=== PATIENT | female | born 1990 | race Caucasian/White ===

== ENCOUNTER 2016-03-25 18:53 | Emergency (ER) | payer OTHER, BC ==
[2016-03-26] MEDS ORDERED: OXYCODONE-ACETAMINOPHEN 5-325 MG TABLET PO ONE (00:28)
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
[2016-03-26] MEDS ORDERED: HYDROCODONE/ACETAMINOPHEN 5-325 MG 6 TAB/DSPK PO PRN (01:26)
[2016-03-26 02:18] VITALS: BP 145/75
== END 2016-03-26 02:16 | disposition home or self-care (01) ==
LOC: ER 18:53
PROC: 2W5 Placement, Anatomical Regions, Removal (ICD-10-PCS; principal; 2016-03-25)
DX: S62.101A Fracture of unspecified carpal bone, right wrist, initial encounter for closed fracture (principal); M25.531 Pain in right wrist; V89.2XXA Person injured in unspecified motor-vehicle accident, traffic, initial encounter
CPT/HCPCS: 99283

== ENCOUNTER → 2016-03-29 | Outpatient (CLI) | payer BC | LOC: RAD 13:36 | PROVIDERS: ATTEND Orthopaedic Surgery | DX: S52.501A Unspecified fracture of the lower end of right radius, initial encounter for closed fracture (principal); X58.XXXA Exposure to other specified factors, initial encounter ==

== ENCOUNTER 2016-09-08 16:15 | Emergency (ER) | payer BC ==
[2016-09-08] MEDS ORDERED: NORMAL SALINE 1000 ML 1,000 ML IV PRN (16:41)
--- NOTE | 2016-09-08 16:44 | ER Document Report ---
ED Medical Screen (RME) - General Chief Complaint: Dizziness Stated Complaint: CONGESTION Time Seen by Provider: 09/08/16 16:41 Mode of Arrival: Ambulatory Information source: Patient TRAVEL OUTSIDE OF THE [place] IN LAST 30 DAYS: No - HPI Patient complains to provider of: Generalized weakness, dizziness, syncopal episodes Notes: 09/08/16 16:42 Patient is a 26-year-old female who presents to the emergency room complaining of 2 week history of headache, nausea, syncopal episodes, she states that just before she has a syncopal episode she gets tunnel vision and feels like weakness , sometimes she can sit down and she does not pass out, outside salesperson who accompanies her has seen 1 of these episodes and denies seeing any seizure-like activity, she does report having some mild chest pain or shortness of breath prior to an episode, she is also complaining of lower abdominal pains today, no appetite and nausea, she has had no vomiting, she does report subjective fevers , she denies being , patient is currently on methadone 2 months, for previous opiate pain pills addiction - Related Data Allergies/Adverse Reactions: clindamycin [Clindamycin] Allergy (Verified 09/08/16 16:36) Past Medical History - Past Medical History Cardiac Medical History: Denies: Hx Coronary Artery Disease, Hx Heart Attack, Hx Hypertension Pulmonary Medical History: Denies: Hx Asthma, Hx Bronchitis, Hx COPD, Hx Pneumonia Neurological Medical History: Denies: Hx Cerebrovascular Accident, Hx Seizures Renal/ Medical History: Denies: Hx Peritoneal Dialysis Musculoskeltal Medical History: Denies Hx Arthritis Past Surgical History: Reports: Hx Tonsillectomy - Immunizations Immunizations up to date: No Hx Diphtheria, Pertussis, Tetanus Vaccination: Yes Physical Exam - Vital signs Vitals: Temp Pulse Resp BP Pulse Ox 98.2 F 57 L 16 106/62 99 09/08/16 16:19 09/08/16 16:19 09/08/16 16:19 09/08/16 16:19 09/08/16 16:19 Course - Vital Signs Vital signs: Temp Pulse Resp BP Pulse Ox 98.2 F 57 L 16 106/62 99 09/08/16 16:19 09/08/16 16:19 09/08/16 16:19 09/08/16 16:19 09/08/16 16:19
[2016-09-08] MEDS ORDERED: ONDANSETRON HCL INJ/PF 4 MG/2 ML SDV IV ONE (17:12)
[2016-09-08 17:52] LABS: APPEARANCE,URINE SLIGHTLY-CLOUDY; BILIRUBIN,URINE NEGATIVE (NEGATIVE); CALCIUM OXALATE CRYSTALS,URINE TOO NUMEROUS TO CNT /HPF; GLUCOSE, URINE NEGATIVE (NEGATIVE); KETONES,URINE NEGATIVE (NEGATIVE); LEUKOCYTE ESTERASE,URINE TRACE (NEGATIVE); NITRITE,URINE NEGATIVE (NEGATIVE); PROTEIN,URINE 30 mg/dL (NEGATIVE); URINE SPECIFIC GRAVITY 1.019
[2016-09-08 17:54] LABS: ABSOLUTE EOSINOPHILS # (AUTO) 0.1 10^3/uL (0.0-0.6); ABSOLUTE LYMPHOCYTES (AUTO) 2.1 10^3/uL (0.5-4.7); ABSOLUTE MONOCYTES (AUTO) 0.8 10^3/uL (0.1-1.4); ABSOLUTE NEUT (AUTO) 2.8 10^3/uL (1.7-8.2); BASOPHILS % (AUTO) 0.5 % (0-2); HEMATOCRIT 42.2 % (36.0-47.0); HEMOGLOBIN 13.9 g/dL (12.0-15.5); HGB HCT DIFFERENCE -0.5; LYMPHOCYTES % (AUTO) 35.5 % (13-45); MEAN CORPUSCULAR HEMOGLOBIN 25.9 pg (27.0-33.4); MEAN CORPUSCULAR HGB CONC 32.8 g/dL (32.0-36.0); MEAN CORPUSCULAR VOLUME 79 fl (80-97); RED BLOOD COUNT 5.35 10^6/uL (3.72-5.28); RED CELL DISTRIBUTION WIDTH 13.9 % (11.5-14.0); WHITE BLOOD COUNT 5.9 10^3/uL (4.0-10.5)
[2016-09-08 18:08] LABS: URINE BARBITURATES SCREEN NEGATIVE; URINE METHADONE SCREEN UNCONFIRMED POSITIVE; URINE OPIATES LOW UNCONFIRMED POSITIVE; URINE PHENCYCLIDINE SCREEN NEGATIVE
--- NOTE | 2016-09-08 18:55 | ER Document Report ---
ED General - General Chief Complaint: Dizziness Stated Complaint: CONGESTION Time Seen by Provider: 09/08/16 16:41 Mode of Arrival: Ambulatory Notes: Patient is a 26-year-old female with a past history of ongoing opiate abuse who presents with 2 weeks of intermittent episodes of near syncope. Patient is a very vague historian and has a multitude of complaints including sinus congestion, headache, nausea, cough, intermittent lightheadedness. She has not seen her primary care doctor regarding any of these concerns. She notes that her friend who is at the bedside seems to have all the exact same symptoms are on the same time. Admits that they are both using drugs. Patient does not think that her symptoms could be related to her drug use. Denies any history of similar symptoms in the past. TRAVEL OUTSIDE OF THE [place] IN LAST 30 DAYS: No - Related Data Allergies/Adverse Reactions: clindamycin [Clindamycin] Allergy (Verified 09/08/16 16:36) Past Medical History - General Information source: Patient - Social History Smoking Status: Current Every Day Smoker Chew tobacco use (# tins/day): No Frequency of alcohol use: Occasional Drug Abuse: Prescription drugs Lives with: Friend Family History: Reviewed & Not Pertinent - Past Medical History Cardiac Medical History: Denies: Hx Coronary Artery Disease, Hx Heart Attack, Hx Hypertension Pulmonary Medical History: Denies: Hx Asthma, Hx Bronchitis, Hx COPD, Hx Pneumonia Neurological Medical History: Denies: Hx Cerebrovascular Accident, Hx Seizures Renal/ Medical History: Denies: Hx Peritoneal Dialysis Musculoskeltal Medical History: Denies Hx Arthritis Past Surgical History: Reports: Hx Tonsillectomy - Immunizations Immunizations up to date: No Hx Diphtheria, Pertussis, Tetanus Vaccination: Yes Review of Systems - Review of Systems Notes: Constitutional: Negative for fever. HENT: Negative for sore throat. Eyes: Negative for visual changes. Cardiovascular: Negative for chest pain. Respiratory: Negative for shortness of breath. Gastrointestinal: Negative for abdominal pain, vomiting or diarrhea. Genitourinary: Negative for dysuria. Musculoskeletal: Negative for back pain. Skin: Negative for rash. Neurological: Negative for headaches, weakness or numbness. 10 point ROS negative except as marked above and in HPI. Physical Exam - Vital signs Vitals: Temp Pulse Resp BP Pulse Ox 98.2 F 57 L 16 106/62 99 09/08/16 16:19 09/08/16 16:19 09/08/16 16:19 09/08/16 16:19 09/08/16 16:19 Interpretation: Bradycardic Notes: PHYSICAL EXAMINATION: GENERAL: Well-appearing, well-nourished and in no acute distress. HEAD: Atraumatic, normocephalic. EYES: Pupils equal round and reactive to light, extraocular movements intact, sclera anicteric, conjunctiva are normal. ENT: nares patent, oropharynx clear without exudates. Moist mucous membranes. NECK: Normal range of motion, supple without lymphadenopathy LUNGS: Breath sounds clear to auscultation bilaterally and equal. No wheezes rales or rhonchi. HEART: Regular rate and rhythm without murmurs ABDOMEN: Soft, nontender, normoactive bowel sounds. No guarding, no rebound. No masses appreciated. EXTREMITIES: Normal range of motion, no pitting or edema. No cyanosis. NEUROLOGICAL: No focal neurological deficits. Moves all extremities spontaneously and on command. PSYCH: Normal mood, normal affect. SKIN: Warm, Dry, normal turgor, no rashes or lesions noted. Course - Re-evaluation Re-evalutation: 09/08/16 18:53 Patient also complains of recurrent episodes of either near syncope or syncope which based on her admission and urine tox screen are likely related to her ongoing polysubstance abuse. Patient normotensive, alert, without focal neurologic deficits at time of arrival. Denies syncope was during exertion. No preceding symptoms of palpitations, chest pain, or shortness of breath. Patient asymptomatic at time of arrival. EKG is without evidence of HCOM, right heart strain, ST changes to suggest ischemia, prolong QTc, delta wave, epsilon wave, or Brugada syndrome. Patient denies any family history of sudden cardiac , personal history of of structural heart disease. Patient denies any symptoms to suggest an acute PE, OR, TAD, SAH, seizure, or acute GI bleed as the etiology of their syncope today. On exam, no murmurs to suggest critical aortic stenosis as possible etiology. Based on overall clinical history, exam findings, vitals , and patients appearance, I feel it is safe for patient to be discharged home at this time with close outpatient follow-up and strict return precautions. Patient is in agreement with this plan, has verbalized indications for return to ED, and questions have been answered. - Vital Signs Vital signs: Temp Pulse Resp BP Pulse Ox 98.6 F 69 18 130/75 H 100 09/08/16 20:46 09/08/16 20:46 09/08/16 20:46 09/08/16 20:46 09/08/16 20:46 - Laboratory Result Diagrams: 09/08/16 17:15 09/08/16 19:48 Laboratory results interpreted by me: 09/08/16 09/08/16 09/08/16 17:15 17:15 19:48 RBC 5.35 H MCV 79 L MCH 25.9 L Monocytes % 14.0 H Chloride 108 H AST 40 H Urine Protein 30 H Urine Urobilinogen 2.0 H Ur Leukocyte Esterase TRACE H - EKG Interpretation by Me Additional EKG results interpreted by me: 09/09/16 03:33 Normal sinus rhythm. Rate 85. No ST elevations or depressions. QTC is 433. Discharge - Discharge Clinical Impression: Near syncope, Lightheadedness, Opiate abuse, continuous Condition: Good Disposition: HOME, SELF-CARE Additional Instructions: You were seen today for concerns of passing out. Your EKG here is normal. At this time, we do not feel that your episodes of passing out are from any life- threatening cause. Please drink plenty of fluids over the next several days. Return to emergency department if you have any further episodes of syncope, headache, weakness, numbness, chest pain, or shortness of breath. Please follow up closely with your primary care physician. Please stop using narcotics. You will kill yourself one day on accident if you continue to use these extremely dangerous substances.
[2016-09-08 20:15] LABS: ALANINE AMINOTRANSFERASE 35 U/L (9-52); ALBUMIN 3.6 g/dL (3.5-5.0); ALKALINE PHOSPHATASE 67 U/L (38-126); ANION GAP 11 (5-19); ASPARTATE AMINO TRANSFERASE 40 U/L (14-36); BILIRUBIN,DIRECT 0.4 mg/dL (0.0-0.4); BILIRUBIN,TOTAL 0.7 mg/dL (0.2-1.3); BLOOD UREA NITROGEN 9 mg/dL (7-20); CALCIUM 8.5 mg/dL (8.4-10.2); CARBON DIOXIDE 22 mmol/L (22-30); CHLORIDE 108 mmol/L (98-107); CREATININE RESULT 0.77 mg/dL (0.52-1.25); GLUCOSE 94 mg/dL (75-110); POTASSIUM 4.4 mmol/L (3.6-5.0); SODIUM 140.8 mmol/L (137-145)
[2016-09-08 20:48] VITALS: BP 130/75
--- NOTE | 2016-09-09 10:22 | EKG REPORT ---
SEVERITY:- ABNORMAL ECG - SINUS RHYTHM NONSPECIFIC T ABNORMALITIES, INFERIOR LEADS : Confirmed by: Мария Lazaro MD 09-Sep-2016 10:21:30
== END 2016-09-08 20:53 | disposition home or self-care (01) ==
LOC: ER 16:15
DX: R55 Syncope and collapse (principal); F11.10 Opioid abuse, uncomplicated; R09.81 Nasal congestion; R51 Headache; R11.0 Nausea; R05 Cough; F17.200 Nicotine dependence, unspecified, uncomplicated; Z88.1 Allergy status to other antibiotic agents
CPT/HCPCS: 93005; 99284; 96361; 96374; 36415; 84703; 85025; 80053; 81001; 84484; 80307; 93010; J2405; J7030

== ENCOUNTER 2018-05-04 16:35 | Emergency (ER) | payer SELFPAY ==
[2018-05-04] MEDS ORDERED: NORMAL SALINE 1000 ML 1,000 ML IV ONE (18:41)
[2018-05-04] MEDS ORDERED: METOCLOPRAMIDE HCL INJ/PF 10 MG/2 ML SDV IV ONE (18:42)
[2018-05-04] MEDS ORDERED: DIPHENHYDRAMINE HCL 50 MG/ML VIAL IV ONE (18:45)
[2018-05-04] MEDS ORDERED: KETOROLAC TROMETHAMINE 60 MG/2 ML SDV IM ONE (19:01)
[2018-05-04 19:47] LABS: APPEARANCE,URINE CLEAR; BILIRUBIN,URINE NEGATIVE (NEGATIVE); COLOR,URINE STRAW; GLUCOSE, URINE NEGATIVE (NEGATIVE); KETONES,URINE TRACE mg/dL (NEGATIVE); LEUKOCYTE ESTERASE,URINE LARGE (NEGATIVE); NITRITE,URINE NEGATIVE (NEGATIVE); PROTEIN,URINE NEGATIVE (NEGATIVE); URINE SPECIFIC GRAVITY 1.003; UROBILINOGEN,URINE NEGATIVE mg/dL (<2.0)
[2018-05-04 21:34] VITALS: BP 97/36
--- NOTE | 2018-05-04 22:08 | ER Document Report ---
ED General - General Chief Complaint: Headache Stated Complaint: HEADACHE Time Seen by Provider: 05/04/18 18:34 TRAVEL OUTSIDE OF THE [place] IN LAST 30 DAYS: No - HPI Notes: Patient presents to the emergency department for evaluation of a headache. She has a history of migraine headaches. She states this is typical although it has been lasting slightly longer. Is behind her eyes. She has had no help with Excedrin. She has had some associated nausea and emesis. Mild photophobia. No neck stiffness. No recent head traumas. Visual changes. No fevers. Again this is all typical of her migraines with the exception of mildly longer duration - Related Data Allergies/Adverse Reactions: clindamycin [Clindamycin] Allergy (Verified 09/08/16 16:36) Past Medical History - General Information source: Patient - Social History Smoking Status: Never Smoker Chew tobacco use (# tins/day): No Frequency of alcohol use: None Drug Abuse: None Family History: Reviewed & Not Pertinent Patient has suicidal ideation: No Patient has homicidal ideation: No - Past Medical History Cardiac Medical History: Denies: Hx Coronary Artery Disease, Hx Heart Attack, Hx Hypertension Pulmonary Medical History: Denies: Hx Asthma, Hx Bronchitis, Hx COPD, Hx Pneumonia Neurological Medical History: Reports: Hx Migraine. Denies: Hx Cerebrovascular Accident, Hx Seizures Renal/ Medical History: Denies: Hx Peritoneal Dialysis Musculoskeletal Medical History: Denies Hx Arthritis Past Surgical History: Reports: Hx Oral Surgery - wisdom, Hx Tonsillectomy - Immunizations Immunizations up to date: No Hx Diphtheria, Pertussis, Tetanus Vaccination: Yes Review of Systems - Review of Systems Constitutional: No symptoms reported EENT: See HPI Cardiovascular: No symptoms reported Respiratory: No symptoms reported Gastrointestinal: See HPI Musculoskeletal: No symptoms reported Skin: No symptoms reported Physical Exam - Vital signs Vitals: Temp Pulse Resp BP Pulse Ox 99.3 F 113 H 16 112/62 99 05/04/18 16:54 05/04/18 16:54 05/04/18 16:54 05/04/18 16:54 05/04/18 16:54 Interpretation: Tachycardic - Otherwise unremarkable - Notes Notes: Vital signs reviewed, please refer to chart. Patient is normocephalic, atraumatic. Pupils equal round, reactive to light. Neck is supple without meningismus. Heart is regular rate and rhythm. Lungs are clear to auscultation bilaterally. Abdomen is soft, nontender, normoactive bowel sounds throughout. Extremities without cyanosis, clubbing, edema. Peripheral pulses are equal. Skin is warm and dry. Patient is awake, alert, oriented x3. Cranial nerves II through XII are grossly intact without focal neurological deficits. Strength +5/5 upper and lower extremities. Sensation is intact. Gait within normal limits. Course - Re-evaluation Re-evalutation: 05/04/18 22:06 Patient seen and evaluated for headache. This is typical of her normal migraines. She was medicated with significant improvement. We will send her home with close follow-up. She is to return to the ED with worsening or new concerning symptoms. - Vital Signs Vital signs: Temp Pulse Resp BP Pulse Ox 98.0 F 75 16 97/36 L 99 05/04/18 21:28 05/04/18 21:28 05/04/18 21:28 05/04/18 21:28 05/04/18 21:28 - Laboratory Laboratory results interpreted by me: 05/04/18 18:30 Urine Ketones TRACE H Urine Blood SMALL H Ur Leukocyte Esterase LARGE H Discharge - Discharge Clinical Impression: Migraine Disposition: HOME, SELF-CARE Instructions: Headache ([facility]), Toradol Injection ([facility]) Additional Instructions: Rest, stay well-hydrated. Tylenol or ibuprofen as needed for severe pain. Follow-up with primary care doctor in 1-2 weeks. Return to the emergency department with worsening or new concerning symptoms.
== END 2018-05-04 22:18 | disposition home or self-care (01) ==
LOC: ER 16:35
DX: G40.909 Epilepsy, unspecified, not intractable, without status epilepticus (principal); R11.2 Nausea with vomiting, unspecified
CPT/HCPCS: 99283; 96372; 81025; 81001; J1885

== ENCOUNTER 2018-10-09 16:18 | Emergency (ER) | payer SELFPAY ==
--- NOTE | 2018-10-09 16:26 | ER Document Report ---
HPI - HPI Time Seen by Provider: 10/09/18 16:23 Pain Level: 3 Notes: Patient is an otherwise healthy 28-year-old female presenting to the emergency department with bilateral wrist pain. Patient reports about 6 to 12 months ago she was diagnosed with carpal tunnel syndrome. She reports that every once in a while it "acts up". Patient reports pain over the last several days. She states the pain is consistent with carpal tunnel. She denies any new injury. Patient has not taken any medication for this. - REPRODUCTIVE Reproductive: DENIES: : Past Medical History - General Information source: Patient - Social History Smoking Status: Never Smoker Frequency of alcohol use: None Drug Abuse: None Family History: Reviewed & Not Pertinent - Past Medical History Cardiac Medical History: Denies: Hx Coronary Artery Disease, Hx Heart Attack, Hx Hypertension Pulmonary Medical History: Denies: Hx Asthma, Hx Bronchitis, Hx COPD, Hx Pneumonia Neurological Medical History: Reports: Hx Migraine. Denies: Hx Cerebrovascular Accident, Hx Seizures Renal/ Medical History: Denies: Hx Peritoneal Dialysis Musculoskeletal Medical History: Denies Hx Arthritis Past Surgical History: Reports: Hx Oral Surgery - wisdom, Hx Tonsillectomy - Immunizations Immunizations up to date: No Hx Diphtheria, Pertussis, Tetanus Vaccination: Yes Vertical Provider Document - CONSTITUTIONAL Notes: PHYSICAL EXAMINATION: GENERAL: Well-appearing, well-nourished and in no acute distress. HEAD: Atraumatic, normocephalic. EYES: Pupils equal round extraocular movements intact, conjunctiva are normal. ENT: Nares patent NECK: Normal range of motion LUNGS: No respiratory distress Musculoskeletal: Normal range of motion, no swelling, erythema or ecchymosis n oted, cap refill less than 3 seconds bilaterally, strong radial pulses bilaterally, no obvious trauma. NEUROLOGICAL: Normal speech, normal gait. PSYCH: Normal mood, normal affect. SKIN: Warm, Dry, normal turgor, no rashes or lesions noted. - INFECTION CONTROL TRAVEL OUTSIDE OF THE [place] IN LAST 30 DAYS: No Course - Re-evaluation Re-evalutation: Physical examination is unremarkable other than patient's report of tenderness with range of motion. There is no obvious injury or deformity, no swelling, no erythema or ecchymosis. Strong radial and ulnar pulses bilaterally, normal sensation distal to area of pain. Patient will be instructed to take [id number] Tylenol or ibuprofen for her pain and follow-up with primary care. Patient is agreeable to this plan. The patient's emergency department workup and current diagnosis were explained to the patient and or family. Follow-up instructions were provided. Medications if prescribed were discussed. Instructions for when to return to the emergency department including specific worrisome symptoms were discussed with the patient and/or family. Discharge - Discharge Clinical Impression: Carpal tunnel syndrome, bilateral Condition: Stable Disposition: HOME, SELF-CARE Additional Instructions: Please take medication as prescribed. Take ibuprofen 600 mg every 6 hours to help with inflammation. Prescriptions: RX: Prednisone [Deltasone 20 mg Tablet] 3 tab PO DAILY 5 Days #15 tablet Forms: Return to Work
[2018-10-09 16:28] VITALS: BP 127/55
== END 2018-10-09 16:43 | disposition home or self-care (01) ==
LOC: ER 16:18
DX: G56.03 Carpal tunnel syndrome, bilateral upper limbs (principal); M25.531 Pain in right wrist; M25.532 Pain in left wrist
CPT/HCPCS: 99283